=== PATIENT | male | born 1960 | race Caucasian/White ===

== ENCOUNTER 2017-04-30 17:44 | Emergency (ER) | payer OTHER ==
--- NOTE | 2017-04-30 18:22 | EDPHY ---
H & P Stated Complaint: Flu sxs;cough;finished Zpack/prednisone; +flu A;concern re :PNA Time Seen by Provider: 04/30/17 18:12 HPI/ROS: CHIEF COMPLAINT: Cough HISTORY OF PRESENT ILLNESS: Patient is a 56-year-old man who was been battling respiratory infections for about 1 month. He states that he initially had ear pain and sinus congestion. This resolved with Mucinex and Sudafed. His then had influenza a and the patient took Tamiflu prophylactically. He states that he had a fever for about a day but then resolved. Over the last week he feels that his symptoms have moved down into his chest. 1 week ago he was seen at an urgent care and started on Z-Wyatt as well as a steroid burst and albuterol without significant improvement. He denies any history of COPD or asthma. No chest pain. No shortness of breath. No recent fevers. No rashes. He states that on last day or 2 his cough has been productive of green sputum and deeper. He is concerned about pneumonia or bronchitis. No leg pain or swelling. He has been traveling frequently for business. no pleuritic chest pain. REVIEW OF SYSTEMS: Constitutional: See HPI EENTM: denies: blurred vision, double vision, nose congestion Respiratory: See HPI Cardiac: denies: chest pain, irregular heart rate, lightheadedness, palpitations Gastrointestinal/Abdominal: denies: abdominal pain, diarrhea, nausea, vomiting, blood streaked stools Genitourinary: denies: dysuria, frequency, hematuria, pain Musculoskeletal: denies: joint pain, muscle pain Skin: denies: lesions, rash, jaundice, bruising Neurological: denies: headache, numbness, paresthesia, tingling, dizziness, weakness Hematologic/Lymphatic: denies: blood clots, easy bleeding, easy bruising Immunologic/allergic: denies: HIV/AIDS, transplant EXAM: GENERAL: Well-appearing, well-nourished and in no acute distress. HEAD: Atraumatic, normocephalic. EYES: Pupils equal round and reactive to light, extraocular movements intact, sclera anicteric, conjunctiva are normal. ENT: TMs normal, nares patent, oropharynx clear without exudates. Moist mucous membranes. NECK: Normal range of motion, supple without lymphadenopathy or JVD. LUNGS: Breath sounds clear to auscultation bilaterally and equal. No wheezes rales or rhonchi. HEART: Regular rate and rhythm without murmurs, rubs or gallops. ABDOMEN: Soft, nontender, normoactive bowel sounds. No guarding, no rebound. No masses appreciated. BACK: No CVA tenderness, no spinal tenderness, step-offs or deformities EXTREMITIES: Normal range of motion, no pitting or edema. No clubbing or cyanosis. NEUROLOGICAL: Cranial nerves II through XII grossly intact. Normal speech, normal gait. 5/5 strength, normal movement in all extremities, normal sensation PSYCH: Normal mood, normal affect. SKIN: Warm, dry, normal turgor, no visible rashes or lesions. Source: Patient Exam Limitations: No limitations - Personal History Current Tetanus Diphtheria and Acellular Pertussis (TDAP): Yes - Medical/Surgical History Hx Asthma: Yes Hx Chronic Respiratory Disease: No Hx Diabetes: No Hx Cardiac Disease: No Hx Renal Disease: No Hx Cirrhosis: No Hx Alcoholism: No Hx HIV/AIDS: No Hx Splenectomy or Spleen Trauma: No Other PMH: denies - Family History Significant Family History: No pertinent family hx - Social History Smoking Status: Never smoked Alcohol Use: Sober Drug Use: None Constitutional: Initial Vital Signs Temperature (C) 36.6 C 04/30/17 17:50 Heart Rate 78 04/30/17 17:50 Respiratory Rate 18 04/30/17 17:50 Blood Pressure 134/71 H 04/30/17 17:50 O2 Sat (%) 93 04/30/17 17:50 O2 Delivery Mode Room Air Allergies/Adverse Reactions: No Known Allergies Allergy (Unverified 06/29/14 12:47) Home Medications: Medication Instructions Recorded Albuterol Hfa Anes Only [Proair 18 gm IH 04/30/17 Hfa Icu (*)] Fluticasone Hfa 220 Mcg [Flovent 1 puffs IH 04/30/17 220 MCG Hfa MDI (*)] Medical Decision Making - Diagnostics EKG Interpretation: An EKG obtained and was read and documented in trace view. Please see trace view for full reading and report. Sinus rhythm, inferior T-wave abnormalities, unchanged previous Imaging: Discussed imaging studies w/ call or contact centre team leader Radiologist ED Course/Re-evaluation: 8:44 p.[address]. we discussed the CT results. The patient and his are greatly relieved. He is already tried inhalers, decongestants, Mucinex, steroids and antibiotics. He likely has a viral respiratory infection versus bronchitis. We discussed options and agree that he t was simply given more time. We discussed indications for returning. Differential Diagnosis: Partial list of the Differential diagnosis considered include but were not limited to; bronchitis, upper respiratory tract infection, pneumonia and although unlikely based on the history and physical exam, I also considered cancer, PE, acute coronary disease, aneurysm. I discussed these differential diagnoses and the plan with the patient as well as the usual and expected course. The patient understands that the diagnosis is provisional and that in medicine we are not always correct and that further workup is often warranted. Usual and customary warnings were given. All of the patient's questions were answered. The patient was instructed to return to the emergency department should the symptoms at all worsen or return, otherwise to followup with the physician as we discussed. - Data Points Laboratory Results: Laboratory Results 04/30/17 18:50 04/30/17 18:50 Departure - Departure Disposition: Home, Routine, Self-Care Clinical Impression: Acute bronchitis Qualifiers: Bronchitis organism: unspecified organism Qualified Code(s): J20.9 - Acute bronchitis, unspecified Condition: Fair Instructions: Albuterol (By breathing), Fluticasone (By breathing), Acute Bronchitis (ED) Referrals: DARRYL STRONG [Other] - As per Instructions Stephen Guillory MD [Medical Doctor] - As per Instructions
[2017-04-30 19:08] LABS: PLATELET COUNT 216 10^3/uL (150-400)
--- NOTE | 2017-04-30 19:12 | CPEKG ---
Heart Rate: 74 RR Interval: 811 P-R Interval: 160 QRSD Interval: 94 QT Interval: 368 QTC Interval: 409 P [place]: 61 QRS [place]: -23 T Wave [place]: -5 EKG Severity - BORDERLINE ECG - EKG Impression: SINUS RHYTHM EKG Impression: BORDERLINE LEFT AXIS DEVIATION EKG Impression: BORDERLINE T ABNORMALITIES, INFERIOR LEADS Electronically Signed By: Ino Bradford 30-Apr-2017 19:19:18
[2017-04-30 19:16] LABS: INR 0.93 (0.83-1.16); PROTIME(PATIENT) 12.7 SEC (12.0-15.0)
[2017-04-30] MEDS ORDERED: IOPAMIDOL (ISOVUE-300) 100 ML BTL ONE (19:43)
[2017-04-30 21:22] VITALS: BP 124/82; PULSE 76; RESP 16; TEMP 98.6; O2SAT 95
== END 2017-04-30 21:20 | disposition home or self-care (01) ==
DX: J20.9 Acute bronchitis, unspecified (principal); J45.909 Unspecified asthma, uncomplicated
CPT/HCPCS: Q9967